=== PATIENT | male | born 1955 | race Caucasian/White ===

== ENCOUNTER 2021-01-22 02:49 | Day surgery (SDC) | payer MEDICARE, SELFPAY ==
[2021-01-07 15:55] VITALS: BMI 26.9
--- NOTE | 2021-01-22 08:04 | P.PNAN_ITS ---
Anes - Initial Pre Proc Eval Procedure: Operation Date: 01/22/21 10:30 Proposed Procedures p Esophagogastroduodenoscopy - Siddharth Rivera MD Date/Time: 01/22/21 08:04 Surgeon: Siddharth Rivera MD Pre Op Diagnosis: esophageal obstruction Patient Data Age: 66 Gender: M Height: 1.78 m Weight: 85 kg Allergies Allergy/AdvReac Type Severity Reaction Status Date / Time No Known Allergies Allergy Verified 01/22/21 09:23 Home Medications Medication Instructions Recorded Confirmed Type testosterone 1 % (50 mg/5 gram) 2 packet TRANSDERM QAM #300 gm 02/23/19 01/22/21 Rx transdermal gel packet albuterol sulfate 90 mcg/actuation 2 puff INHALATION Q4H PRN #8.5 g 05/16/20 01/22/21 Rx aerosol inhaler multivitamin 1 tablet PO DAILY 05/16/20 01/22/21 History fluticasone propionate 50 2 spray INTRANASAL DAILY #16 g 10/25/20 01/22/21 Rx mcg/actuation nasal spray,suspension testosterone 20.25 mg/1.25 gram 4 pump TOPICAL DAILY #300 gm 01/21/21 01/22/21 Rx (1.62 %) transdermal gel pump Patient hx anesthesia problems: none Family hx anesthesia problems: none Results Review: All pre-operative results and documents have been reviewed as part of the pre-operative evaluation. [facility] Past Medical History Medical History (Updated 01/22/21 @ 10:16 by Siddharth Rivera MD) Alcohol use disorder, mild, in controlled environment Allergic rhinitis Asthma Eczema Hypogonadism in male Overweight (BMI 25.0-29.9) Surgical History Surgical History (Updated 05/16/20 @ 10:56 by Mary Anne Carmona CMA) History of rotator cuff surgery 2016 Social History Social History Smoking status: Never smoker Alcohol intake: current Drinks per week: 12 Living arrangements: alone Anes - Eval Final PreProcedure Day of Procedure 01/22/21 08:04 Patient weight: overweight Heart: regular rate and rhythm Lungs: clear to auscultation and normal air movement Airway: Mallampati scale class II Neurological: alert and oriented Last oral intake: >/= 8 hours ASA classification: II Emergent: no Anesthetic plan: proceed Anesthesia type and monitoring: general GIVS and standard monitoring Results Review: All pre-operative results and documents have been reviewed as part of the pre-operative evaluation. Informed Consent: The patient's anesthetic plan and its attendant risks and benefits were discussed with the patient/family/POA. Questions were solicited and answers provided to the satisfaction of the patient/family/POA.
[2021-01-22 09:24] VITALS: BP 136/75; PULSE 64; RESP 16; TEMP 36.2; O2SAT 97; BMI 27.6
[2021-01-22] MEDS: LACTATED RINGERS 1,000 ML 150 ML IV CONT (09:39)
--- NOTE | 2021-01-22 10:14 | WPDGICN ---
Assessment and Plan Assessment and plan (1) Dysphagia: Code(s): R13.10 - Dysphagia, unspecified Status: Acute Assessment and Plan: Patient has difficulty eating more solid foods including meats food appears to catch the mid substernal portion the chest. Plan is for EGD to assess for esophageal narrowing possibly for dilatation. Further recommendations will be given after endoscopy. GI Consult Note Consult date/time: 01/22/21 10:14 HPI: Rickey Powers is a 66 year old male presents with complaints of dysphagia. Over last 1 year patient is noted food catching in the low mid substernal portion of the chest. This typically occurs after eating steak meal. He denies any heartburn. He has had no bleeding. He denies any weight loss. He presents today for evaluation of difficulty swallowing. Family history is noncontributory. Review of Systems Review of Systems: All systems reviewed & are unremarkable except as noted in HPI and below PMFSH Past Medical History Medical History (Updated 01/22/21 @ 10:16 by Siddharth iRvera MD) Alcohol use disorder, mild, in controlled environment Allergic rhinitis Asthma Eczema Hypogonadism in male Overweight (BMI 25.0-29.9) Surgical History Surgical History (Updated 05/16/20 @ 10:56 by Mary Anne Carmona CMA) History of rotator cuff surgery 2015 Social History Social History Smoking status: Never smoker Alcohol intake: current Drinks per week: 12 Living arrangements: alone Meds Home Medications and Allergies Home Medications Medication Instructions Recorded Confirmed Type testosterone 1 % (50 mg/5 gram) 2 packet TRANSDERM QAM #300 gm 02/23/19 01/22/21 Rx transdermal gel packet albuterol sulfate 90 mcg/actuation 2 puff INHALATION Q4H PRN #8.5 g 05/16/20 01/22/21 Rx aerosol inhaler multivitamin 1 tablet PO DAILY 05/16/20 01/22/21 History fluticasone propionate 50 2 spray INTRANASAL DAILY #16 g 10/25/20 01/22/21 Rx mcg/actuation nasal spray,suspension testosterone 20.25 mg/1.25 gram 4 pump TOPICAL DAILY #300 gm 01/21/21 01/22/21 Rx (1.62 %) transdermal gel pump Allergies Allergy/AdvReac Type Severity Reaction Status Date / Time No Known Allergies Allergy Verified 01/22/21 09:23 Vital Signs Vital Signs - 24 hr 01/22/21 09:24 Temperature 97.2 F L Pulse Rate 64 Respiratory Rate 16 Blood Pressure 136/75 Pulse Oximetry 97 Exam Narrative: Physical exam reveals patient be alert. Vital signs stable. HEENT exam is unremarkable. Patient is anicteric. Lungs are clear to auscultation and percussion. Heart is without murmur or extra sounds. Abdominal exam bowel sounds are present soft nontender with no organomegaly. Digital external rectal exam is normal.
[2021-01-22 10:33] VITALS: BP 116/76; PULSE 69; RESP 18; O2SAT 98
[2021-01-22 10:43] VITALS: BP 103/71; PULSE 68; RESP 19; O2SAT 97
[2021-01-22 10:53] VITALS: BP 126/84; PULSE 62; RESP 20; O2SAT 98
== END 2021-01-22 11:00 | disposition home or self-care (01) ==
PROVIDERS: PCP Family Medicine; Visit Provider Internal Medicine Gastroenterology
PROC: 0DJ08ZZ Inspection of Upper Intestinal Tract, Via Natural or Artificial Opening Endoscopic (ICD-10-PCS; CPT 43235; principal; 2021-01-22 10:30)
DX: K22.2 Esophageal obstruction (principal); K21.00 Gastro-esophageal reflux disease with esophagitis, without bleeding; J45.909 Unspecified asthma, uncomplicated; E29.1 Testicular hypofunction; Z79.51 Long term (current) use of inhaled steroids
CPT/HCPCS: 43239; 43450; 88305; J2704; J7120

== ENCOUNTER 2022-06-26 08:22 | Outpatient (CLI) | payer MEDICARE, OTHER, SELFPAY ==
--- NOTE | 2022-07-10 14:19 | WPDSLEEPSTUD ---
Sleep Study Date of Study: 06/26/22 Ordering Provider: Tino Arriaga MD Interpreting Physician: Mely Foy MD Sleep Study Type: Split Polysomnogram Height: 1.78 m Weight: 90.718 kg Body Mass Index: 28.7 Neck Circumference (inches): 18 [place]: 6 Reason for Sleep Study Loud snoring Sleep History Rickey Powers is a 67-year-old man who had a stroke June 10, 2022 with admission to an outside hospital. He had changes of an acute infarct and elevated blood pressure, placed on lisinopril. He has chronic small vessel ischemic changes on brain imaging. He does not awaken from sleep feeling short of breath. He rarely awakens at night with heartburn, belching or coughing. He frequently snores, occasionally loudly enough that others complain about it he occasionally has trouble sleeping with a cold. He rarely wakes up gasping for breath at night. He occasionally has breathing problems at night observed by others. He does not sweat excessively at night or notice his heart pounding or beating excessively at night. He rarely falls asleep during the day, never involuntarily and never while driving. He does not have loss of muscle tone with strong emotion. He rarely has daytime difficulties due to excessive sleepiness. He does not feel paralyzed on waking or falling asleep. He does not have vivid dreamlike scenes on waking or falling asleep. He does not feel afraid to go to sleep. Does not have nightmares. He occasionally remembers his dreams. He occasionally has racing thoughts. He does not feel sad or depressed. He rarely has anxiety. He does not have muscular tension. He rarely notices parts of his body jerking. He rarely kicks at night. He does not have crawling or aching feelings in his legs. He does not have leg pain at night. Does not have morning jaw pain. He occasionally grinds his teeth during sleep. He rarely is bothered by pain during the day. Rarely is awakened by pain at night. He rarely wakes up feeling stiff in the morning. He rarely wakes up with sore achy muscles or pain in the neck and spine. He has fatigue. He reports a 10 lb weight gain in the last year. Normal bedtime is 9:00 p.m. falling asleep within 15 minutes. He wakes once during the night to go to the bathroom. He is able to return to sleep within 10 minutes. He wakes for his day at 8:00 a.m.. He estimates getting 9 hours of sleep at night. His weekend schedule is the same. He takes naps in the afternoon or evening. A short nap lasting 10 or 15 minutes may be refreshing. He feels better in the morning compared to other times a day. Habits: His history shows that he smokes a few cigars, not cigarettes. Caffeine 2 servings a day. Alcohol 2 bottles a day. No recreational substances. [facility] Past Medical History Medical History Alcohol use disorder, mild, in controlled environment Allergic rhinitis Asthma CVA (cerebral vascular accident) Eczema Hypogonadism in male Overweight (BMI 25.0-29.9) Surgical History Surgical History History of rotator cuff surgery 2015 Social History Social History Smoking status: Never smoker Alcohol intake: current Drinks per week: 12 Living arrangements: alone Medications Home Medications Medication Instructions Recorded Confirmed Type testosterone 1 % (50 mg/5 gram) 2 packet transdermal QAM #300 grams 02/23/19 06/18/22 Rx transdermal gel packet (AndroGel) multivitamin (Daily Multi-Vitamin 1 tablet PO DAILY 05/16/20 06/18/22 History tablet) fluticasone propionate 50 2 spray intranasal DAILY #16 grams 04/19/21 06/18/22 Rx mcg/actuation nasal spray,suspension (Flonase Allergy Relief) testosterone 4 pump topical DAILY #300 grams 02/11/22 06/18/22 Rx prednisone 10 mg tablet See Rx Instructions P
[2022-07-10 14:59] VITALS: BMI 28.7
== END 2022-06-27 06:57 | disposition home or self-care (01) ==
LOC: ANHCSM 08:23
PROVIDERS: PCP Family Medicine; Visit Provider Family Medicine
DX: G47.9 Sleep disorder, unspecified (principal); I63.9 Cerebral infarction, unspecified; G47.33 Obstructive sleep apnea (adult) (pediatric)
CPT/HCPCS: 95811

== ENCOUNTER 2022-07-16 16:22 | Inpatient (IN) | payer MEDICARE, SELFPAY ==
[2022-07-16] VITALS (9 sets, daily range): BP systolic 114–134; BP diastolic 63–103; PULSE 66–88; RESP 13–18; TEMP 36.3–36.8; O2SAT 92–97; BMI 28.1
--- NOTE | ~2022-07-16 | CT_ITS ---
CT head without contrast Indication: Status post fall Technique: Serial scans were obtained through the brain without the administration of contrast. Dose reduction technique was used on this scan by utilizing automated exposure control and iterative recon struction technique. The dose-length product (DLP) was 605.33 mGy-cm. Findings: There is no evidence of intracranial hemorrhage, mass lesion, or acute infarct. The ventri cles and subarachnoid spaces are unremarkable. Mild low attenuation regions are seen within the periv entricular white matter bilaterally, likely representing changes from chronic microvascular ischemic disease. There is no evidence of edema, mass effect or midline shift. The visualized paranasal sinu ses and mastoid air cells are clear. Impression: No intracranial hemorrhage, mass, or acute infarct. Mild chronic white matter changes, as above. Reviewed, dictated and finalized at location . Impression: No intracranial hemorrhage, mass, or acute infarct. Mild chronic white matter changes, as above.
--- NOTE | ~2022-07-16 | XR_ITS ---
EXAMINATION: XR chest 1V portable Exam Date/Time: 07/16/2022 18:30 CDT HISTORY: STEMI, POST PROCEDURE Comparison: 11/17/2014. RESULT: Lines, tubes, and devices: None. Lungs and pleura: Clear. Cardiomediastinal silhouette: Stable. Other: No acute osseous or upper abdominal finding. IMPRESSION: No acute cardiopulmonary process. Reviewed, dictated and finalized at location K.
--- NOTE | 2022-07-16 16:27 | ECG_ITS ---
Measurements Intervals [place] Rate: 66 P: -81 DC: 115 QRS: 36 QRSD: 92 T: 88 QT: 395 QTc: 415 Interpretive Statements ECTOPIC ATRIAL RHYTHM INFERIOR ST ELEVATION MYOCARIDAL INFARCT- ACUTE POSTERIOR INFARCT, ACUTE ABNORMAL ECG NO PREVIOUS ECG AVAILABLE FOR COMPARISON Electronically Signed On 07-16-2022 18:12:16 CDT by Raudel Thomas D.O.
--- NOTE | 2022-07-16 16:30 | PC.NURSE ---
agriculture laboratory technician at bedside.
--- NOTE | 2022-07-16 16:33 | PC.NURSE ---
3 baby aspirin given.
--- NOTE | 2022-07-16 16:35 | ED.GENADULT ---
HPI - General Adult General Chief complaint: Syncope Stated complaint: syncopal episode x 2 Time Seen by Provider: 07/16/22 16:31 History of Present Illness HPI narrative: Patient is 67-year-old gentleman who presents the emergency department with chief complaint of syncopal episode. [facility] and passed out on the floor in the bathroom. The patient reports he had another episode immediately after the first 1 and was brought to the emergency department. The patient denies chest pain reports that he feels a little short of breath and reports that he had some diaphoresis. The patient reports approximately 6 weeks ago he had a TIA and is currently on a baby aspirin daily Related Data Home Medications Medication Instructions Recorded Confirmed multivitamin (Daily Multi-Vitamin 1 tablet PO DAILY 05/16/20 06/18/22 tablet) aspirin 81 mg tablet 81 mg PO DAILY 06/18/22 06/18/22 atorvastatin 40 mg tablet 40 mg PO DAILY 06/18/22 06/18/22 lisinopril 2.5 mg tablet 2.5 mg PO DAILY 06/18/22 06/18/22 Allergies Allergy/AdvReac Type Severity Reaction Status Date / Time No Known Allergies Allergy Verified 07/16/22 16:31 Review of Systems Review of Systems: A 10 system review of systems was completed on the patient and is negative except for what is stated in the HPI. Nursing and ancillary documentation was reviewed. [facility] Past Medical History Medical History Alcohol use disorder, mild, in controlled environment Allergic rhinitis Asthma CVA (cerebral vascular accident) Eczema Hypogonadism in male Overweight (BMI 25.0-29.9) Surgical History Surgical History History of rotator cuff surgery 2016 Social History Social History Smoking status: Never smoker Alcohol intake: current Drinks per week: 12 Living arrangements: alone Exam Narrative: GENERAL: Well-appearing, well-nourished, and in no acute distress. HEAD: Normocephalic, atraumatic. EYES: PERRLA and EOMI. ENT: Nares clear, no rhinorrhea or epistaxis. Mucous membranes moist. NECK: Supple. CHEST: Clear to auscultation. No respiratory distress. HEART: Regular rate and rhythm. No murmur heard. Normal peripheral pulses. ABDOMEN: Soft, nontender, nondistended, normal active bowel sounds. EXTREMITIES: Normal range of motion. No edema. SKIN: Warm, diaphoretic, no rash. NEURO: No focal deficits. Alert and oriented x3. PSYCH: Normal mood and affect. Course Vital Signs Vital signs: Vital Signs Pulse Rate 66 07/16/22 16:25 Respiratory Rate 18 07/16/22 16:25 Blood Pressure 121/77 07/16/22 16:25 Pulse Oximetry 96 07/16/22 16:25 Oxygen Delivery Room Air 07/16/22 16:25 Pulse Rate 66 07/16/22 16:25 Respiratory Rate 18 07/16/22 16:25 Blood Pressure 121/77 07/16/22 16:25 Pulse Oximetry 96 07/16/22 16:25 Oxygen Delivery Room Air 07/16/22 16:25 Medical Decision Making MDM Narrative Medical decision making narrative: Differential diagnosis includes dysrhythmia, STEMI, non-STEMI, electrolyte abnormality. Initial EKG showed inferior ST elevations with reciprocal changes. This is concerning for acute ST elevation PA. Given the initial EKG findings cardiac activation was initiated the patient was seen by cardiology in the emergency department will be taken immediately to the Product [facility] for cardiac catheterization. Vital Signs Vital Signs: Vital Signs Pulse Rate 66 07/16/22 16:25 Respiratory Rate 18 07/16/22 16:25 Blood Pressure 121/77 07/16/22 16:25 Pulse Oximetry 96 07/16/22 16:25 Oxygen Delivery Room Air 07/16/22 16:25 Pulse Rate 66 07/16/22 16:25 Respiratory Rate 18 07/16/22 16:25 Blood Pressure 121/77 07/16/22 16:25 Pulse Oximetry 96 05/
--- NOTE | 2022-07-16 16:35 | PC.NURSE ---
Brilinta 180 mg given.
--- NOTE | 2022-07-16 16:36 | PC.NURSE ---
To superintendent geophysical laboratory via stretcher.
[2022-07-16 16:43] LABS: Glucose Point of Care 102 mg/dl (65-105)
[2022-07-16 16:49] LABS: Basophils Absolute Auto 0.1 K/mm3 (0.0-0.1); Basophils Percent Auto 0.6 % (0.2-1.2); Eosinophils Absolute Auto 0.7 K/mm3 (0-0.3); Eosinophils Percent Auto 5.9 % (0-4.4); Hematocrit 45.1 % (42.0-52.0); Hemoglobin 15.2 g/dL (14.0-18.0); Immature Granulocyte Absolute 0.05 K/mm3 (0.00-0.031); Immature Granulocyte Percent A 0.4 % (0-0.5); Lymphocytes Percent Auto 28.4 % (18.3-44.2); Mean Corpuscular HGB Conc 33.7 g/dl (32-36); Mean Corpuscular Hemoglobin 30.3 pg (26-34); Mean Platelet Volume 9.1 fl (7.4-10.4); Monocytes Absolute Auto 1.6 K/mm3 (0.1-0.6); Monocytes Percent Auto 13.3 % (2.6-8.5); Neutrophils Absolute Auto 6.1 K/mm3 (1.3-6.7); Neutrophils Percent Auto 51.4 % (45.5-73.1); Platelet Count Result 352 k/mm3 (150-375); Red Blood Count 5.01 M/mm3 (4.6-6.20); Red Cell Distribution Width 13.2 % (11.5-14.5)
[2022-07-16 16:59] LABS: Partial Thromboplastin Time 24.1 SECONDS (22.3-36.8); Prothrombin Time 13.3 Seconds (11.1-14.7)
[2022-07-16 17:01] LABS: Alanine Aminotransferase 37 U/L (6-50); Albumin Level 4.8 g/dL (3.5-5.1); Alkaline Phosphatase 91 U/L (38-126); Anion Gap 11 mmol/L (8-16); Aspartate Amino Transferase 32 U/L (17-59); Bilirubin,Total 0.4 mg/dL (0.2-1.3); Blood Urea Nitrogen 15 mg/dL (9-20); Calcium 9.5 mg/dL (8.4-10.2); Carbon Dioxide 26 mmol/L (22-30); Chloride 105 mmol/L (98-107); Cholesterol 127 mg/dL (0-200); Estimated CRCL calculation 83 ml/min; Estimated Glomerular Filt Rate > 60; Glucose 105 mg/dL (65-110); HDL Direct 44 mg/dL; Potassium 3.9 mmol/L (3.4-5.0); Sodium 142 mmol/L (137-145); Triglycerides 190 mg/dL (<150)
[2022-07-16 17:12] LABS: LDL Cholesterol Direct 56 mg/dL; Troponin I < 0.012 ng/mL (0.000-0.034)
--- NOTE | 2022-07-16 17:55 | PM.IMHP ---
H&P: HPI History of Present Illness Date/Time: 07/16/22 17:55 Chief Complaint: Syncopal episode Narrative: Patient is a 67-year-old male with history of CVA in 05/2022 who presented with syncope. Patient was at [facility] and went to the bathroom and passed out in the bathroom. Patient had a second episode of syncope soon after the first episode. No chest pain. He had picked up an event monitor from our clinic earlier today. Event monitor was ordered to rule out atrial fibrillation given his stroke. On arrival to the ED, his EKG showed inferior STEMI. Review of Systems Review of Systems: All systems reviewed & are unremarkable except as noted in HPI and below (HPI) COUNTS INCLUDE 234 BEDS AT THE [facility] Past Medical History Medical History Alcohol use disorder, mild, in controlled environment Allergic rhinitis Asthma CVA (cerebral vascular accident) Eczema Hypogonadism in male Overweight (BMI 25.0-29.9) Surgical History Surgical History History of rotator cuff surgery 2015 Social History Social History Smoking status: Never smoker Alcohol intake: current Drinks per week: 12 Living arrangements: alone Meds Home Medications and Allergies Home Medications Medication Instructions Recorded Confirmed Type testosterone 1 % (50 mg/5 gram) 2 packet transdermal QAM #300 grams 02/23/19 06/18/22 Rx transdermal gel packet (AndroGel) multivitamin (Daily Multi-Vitamin 1 tablet PO DAILY 05/16/20 06/18/22 History tablet) fluticasone propionate 50 2 spray intranasal DAILY #16 grams 04/19/21 06/18/22 Rx mcg/actuation nasal spray,suspension (Flonase Allergy Relief) testosterone 4 pump topical DAILY #300 grams 02/11/22 06/18/22 Rx prednisone 10 mg tablet See Rx Instructions PO DAILY #42 04/01/22 06/18/22 Rx tabs albuterol sulfate 90 mcg/actuation 2 puff inhalation Q4H PRN 06/18/22 06/18/22 Rx aerosol inhaler (ProAir HFA) bronchospasm #8.5 grams aspirin 81 mg tablet 81 mg PO DAILY 06/18/22 06/18/22 History atorvastatin 40 mg tablet 40 mg PO DAILY 06/18/22 06/18/22 History lisinopril 10 mg tablet 10 mg PO DAILY #90 tabs 06/18/22 06/18/22 Rx lisinopril 2.5 mg tablet 2.5 mg PO DAILY 06/18/22 06/18/22 History metformin 500 mg tablet,extended 500 mg PO DAILY #90 tabs 07/09/22 Rx release 24 hr CPAP #1 ea 07/10/22 Rx Allergies Allergy/AdvReac Type Severity Reaction Status Date / Time No Known Allergies Allergy Verified 07/16/22 16:31 Vital Signs Vital Signs - 24 hr 07/16/22 16:25 07/16/22 16:28 Pulse Rate 66 88 Respiratory Rate 18 Blood Pressure 121/77 Pulse Oximetry 96 Oxygen Delivery Room Air Exam Const: General: in distress mild HENMT: Mouth: Yes moist mucous membranes Eyes: General: appearance normal, both eyes and all related structures Sclera: sclerae normal Neck: Neck: supple Resp: Effort & Inspection: normal respiratory effort Auscultation: clear to auscultation bilaterally Cardio: Rate: regular rate Rhythm: regular rhythm Heart sounds: no murmurs GI: GI Palp: Yes Soft to palpation and No Tenderness to palpation present (GI) Skin: General skin exam: normal color Neuro: Speech: normal speech Psych: Mental Status: mental status grossly normal Affect: normal affect H&P: Results Labs Labs: Short CBC 07/16/22 Range/Units 16:36 WBC 12.0 H (4.5-10.0) K/mm3 Hgb 15.2 (14.0-18.0) g/dL Hct 45.1 (42.0-52.0) % Plt Count 352 (150-375) k/mm3 [facility] 07/16/22 16:36 Sodium 142 Potassium 3.9 Chloride 105 Carbon Dioxide 26 BUN 15 Creatinine 0.80 Glucose 105 Calcium 9.5 Cardiac Enzymes 07/16/22 Range/Units 16:36 Troponin I < 0.012 (0.000-0.034) ng/mL Liver Function 07/16/22 Range/Units 16:36 Total Bilirubin 0.4 (0.2-1.3) mg/dL AST 32 (17-59) U/L ALT 37 (6-50)
--- NOTE | 2022-07-16 18:02 | WPDMODSED ---
Moderate Sedation Note-Pt Data Patient Data Diagnosis: Inferior STEMI Present Complaint: Syncope Procedure to be performed/Plan: Primary PCI Allergies Allergy/AdvReac Type Severity Reaction Status Date / Time No Known Allergies Allergy Verified 07/16/22 16:31 Home Medications Medication Instructions Recorded Confirmed Type testosterone 1 % (50 mg/5 gram) 2 packet transdermal QAM #300 grams 02/23/19 06/18/22 Rx transdermal gel packet (AndroGel) multivitamin (Daily Multi-Vitamin 1 tablet PO DAILY 05/16/20 06/18/22 History tablet) fluticasone propionate 50 2 spray intranasal DAILY #16 grams 04/19/21 06/18/22 Rx mcg/actuation nasal spray,suspension (Flonase Allergy Relief) testosterone 4 pump topical DAILY #300 grams 02/11/22 06/18/22 Rx prednisone 10 mg tablet See Rx Instructions PO DAILY #42 04/01/22 06/18/22 Rx tabs albuterol sulfate 90 mcg/actuation 2 puff inhalation Q4H PRN 06/18/22 06/18/22 Rx aerosol inhaler (ProAir HFA) bronchospasm #8.5 grams aspirin 81 mg tablet 81 mg PO DAILY 06/18/22 06/18/22 History atorvastatin 40 mg tablet 40 mg PO DAILY 06/18/22 06/18/22 History lisinopril 10 mg tablet 10 mg PO DAILY #90 tabs 06/18/22 06/18/22 Rx lisinopril 2.5 mg tablet 2.5 mg PO DAILY 06/18/22 06/18/22 History metformin 500 mg tablet,extended 500 mg PO DAILY #90 tabs 07/09/22 Rx release 24 hr CPAP #1 ea 07/10/22 Rx Current Medications: Active Medications Aspirin (Aspirin 81 Mg Enteric Tablet) 81 mg PO QAM [facility] Atorvastatin Calcium (Atorvastatin 40 Mg Tablet) 80 mg PO DAILY CARLA Sodium Chloride (Normal Saline Iv) 1,000 mls @ 125 mls/hr IV CONT .Q8H ONE Stop: 07/17/22 01:51 Perflutren Lipid Microsphere (Perflutren Lipid Microspheres 1.5 Ml Vial Diluted To 10 Ml Total Volume) 0 ml IV PUSH ONCE PRN; Protocol PRN Reason: adequate visualization Stop: 07/18/22 17:54 Ticagrelor (Ticagrelor 90 Mg Tablet) 90 mg PO Q12HR CARLA Sedation/Anesthesia: No previous sedation/anesthesia problems (including family history). [facility] Past Medical History Medical History Alcohol use disorder, mild, in controlled environment Allergic rhinitis Asthma CVA (cerebral vascular accident) Eczema Hypogonadism in male Overweight (BMI 25.0-29.9) Surgical History Surgical History History of rotator cuff surgery 2015 Social History Social History Smoking status: Never smoker Alcohol intake: current Drinks per week: 12 Living arrangements: alone Mod Sed Physical Exam Physical Exam Pre Procedural Exam: Normal: Appearance, Lungs, Heart Rate, Heart Rhythm, Neuro Exam, Abdomen, Extremities and Skin Hours since solid foods: 6 Hours since liquid intake: 6 Mallampati Classification: class III Internal Medicine - PN: Obj Da Vital Signs Vital Signs: Vital Signs - 24 hr 07/16/22 16:25 07/16/22 16:28 Pulse Rate 66 88 Respiratory Rate 18 Blood Pressure 121/77 Pulse Oximetry 96 Oxygen Delivery Room Air Meds/Results Medications: Active Medications Generic Name Dose Route Start Last Admin Trade Name Freq PRN Reason Stop Dose Admin Aspirin 81 mg 07/17/22 09:00 Aspirin 81 Mg Enteric Tablet PO QAM [facility] Atorvastatin Calcium 80 mg 07/17/22 09:00 Atorvastatin 40 Mg Tablet PO DAILY [facility] Sodium Chloride 1,000 mls @ 125 mls/hr 07/16/22 17:52 Normal Saline Iv IV CONT 07/17/22 01:51 .Q8H ONE Perflutren Lipid Microsphere 0 ml 07/16/22 17:54 Perflutren Lipid Microspheres 1.5 Ml Vial Diluted To 10 Ml Total Volume IV PUSH 07/18/22 17:54 ONCE PRN adequate visualization Protocol Ticagrelor 90 mg 07/16/22 21:00 Ticagrelor 90 Mg Tablet PO Q12HR [facility] Labs 07/16/22 16:36 07/16/22 16:36 Labs: Laboratory Results - last 24 hr 07/16/22 053
--- NOTE | 2022-07-16 18:03 | WPDCARDPROC ---
Cardiac Cath Procedure Note Date of procedure:: 07/16/22 Performing physician:: CATHETERIZATION LABORATORY REPORT Procedure Date: 07/16/2022 Splicing Technician: Duy Ribeiro M.D., [facility]? Referring Physician: Dr. Gutiérrez ([facility]) ? Anesthesia: Versed and Fentanyl were ordered and given in my presence at 16:51, procedure ended at 17:47. Supervision of nurse monitored moderate sedation with Versed and Fentanyl was provided for 56 minutes. Total of Versed 1mg and Fentanyl 25mcg were administered by the Kiln Remover RN Katie Ling. Pre-op Diagnosis: Inferior STEMI Post-op Diagnosis: 1. Acute 100% occlusion of the mid RCA s/p successful primary PCI with VALERIA x 1. 2. The mid LAD has a heavily calcific 80% stenosis, however, LAD is small caliber distal to the lesion. Will medically manage for now. Procedure(s): 1. Moderate sedation 2. Ultrasound-guided access of the right common femoral artery 3. Coronary angiography 4. IVUS of the RCA 5. PCI of the mid RCA s/p VALERIA x 1 with pre and post dilatation 6. Angioseal closure of the right common femoral artery Access Site: Right common femoral artery Brief History and Clinical Indications: Patient is a 67-year-old male with a history of hypertension and CVA who is referred for emergent cardiac cath for inferior STEMI. All risks, benefits and alternatives to left heart catheterization with or without percutaneous coronary intervention was discussed at length with the patient. Risk of complications including but not limited to bleeding, infection, arrhythmia, stroke, worsening kidney function, blood loss, groin hematoma, limb loss, emergency coronary artery bypass grafting, and even were discussed with the patient and all questions were answered. The patient understood and wished to proceed. Time out called, patient name, date of , medical record number, allergies, procedure performed, identify Splicing Technician, patient and staff member concurred with accurate data, procedure carried on. Findings: LEFT HEART CATHETERIZATION FINDINGS: 1. Left main: Large caliber vessel. The left main coronary artery is widely patent without any significant obstructive disease. Bifurcates into the LAD and LCX. 2. Left anterior descending: The proximal-mid LAD is heavily calcified. The proximal LAD is large caliber and then the LAD tapers down to small caliber. The mid LAD at the level of the bifurcation of the first diagonal vessel has a heavily calcified 80% stenosis. The LAD at this point is a small caliber vessel. Remainder of the LAD has mild diffuse disease. The first diagonal branch is a small caliber vessel with diffuse disease. 3. Left circumflex: The proximal LCX has mild diffuse disease. The AV groove circumflex is very small caliber and with diffuse disease. The left circumflex bifurcates into two OM branches. OM-1 bifurcates into two branches. OM-1 and its branches are of very small caliber and with diffuse disease. OM-2 is very small caliber and with diffuse disease. 4. Right coronary artery: Large caliber vessel. The RCA is the dominant vessel. The RCA has heavy diffuse calcifications. The RCA has an acute 100% occlusion in its mid portion. Description of Procedure and PCI: Informed consent signed and placed in the chart. Patient transferred to cathode maker room. Prepped and draped in usual sterile fashion. 2% lidocaine in right groin area. Micropuncture needle used to access right common femoral artery with Seldinger technique under fluoroscopic and ultrasound guidance. J wire advanced, micropuncture cannula placed. Right iliofemoral angiogram performed, access confirmed and micropuncture cannula exchanged for 6-FR sheath. 5F FL 4 diagnostic catheter engaged Left Main Coronary Artery. Angiomax used for anticoagulation. 6F JR 4 guide catheter was used to intubate the RCA. 0.014 [place] coronary wire was passed in to the distal RCA. The lesion was pre-dilated with a 2.5mm x 15mm b
--- NOTE | 2022-07-16 18:38 | PC.NURSE ---
[email or web address] Admission Note: The patient,Rickey Powers,67 y/o, was given written information regarding hospital policies, unit procedures and contact persons. Patient's smoking status: Never smoked cigars but quite 6 weeks ago
[2022-07-16] MEDS: SODIUM CHLORIDE 0.9% IV 1,000 ML 125 ML IV CONT (19:02)
[2022-07-16] MEDS: TICAGRELOR 90 MG TABLET PO (21:07)
[2022-07-17] VITALS (8 sets, daily range): BP systolic 103–127; BP diastolic 45–89; PULSE 62–79; RESP 12–24; TEMP 36.9–37.1; O2SAT 95–99
--- NOTE | 2022-07-17 | ECHO_ITS ---
Patient Info Name: Rickey Powers Age: 67 years : 1955 Gender: Male Ht: 70 in Wt: 195 lbs BSA: 2.11 m2 HR: 66 bpm BP: 115 / 55 mmHg Heart Rhythm: Sinus Rhythm Technical Quality: Fair Exam Date: 07/17/2022 10:15 AM Exam Location: [facility] Pulmonary Exam Room: ICU06 Patient Status: Inpatient Admit Date: 07/16/2022 Staff Ordering Physician: Duy Ribeiro MD ([facility]) Elevator Service Technician: Rhea Mckeon RDCS Attending Provider: Duy Ribeiro MD ([facility]) Referring Physician: Quintin SMITH; Exam Type: CA echo dop color flow w con Study Info Indications - S/P STEMI S/P CATH Complete two-dimensional, color flow and Doppler transthoracic echocardiogram is performed with contrast to opacify the left ventricle and to improve the deliniation of the left ventricle endocardial borders. Contrast/Agitated Saline Contrast/Ag. Saline: Definity Amount: 2.00 ml Administered By: Rhea Mckeon [facility] Existing IV Access: Yes IV Access Condition: patent with no signs of infiltration Summary 1. Left ventricular chamber dimension is normal. 2. Left ventricular systolic function is normal, estimated at 65-70%. 3. The left ventricular diastolic function is grade I diastolic dysfunction. 4. Right ventricular systolic function is normal. 5. There is mild tricuspid valve regurgitation. Left Ventricle Left ventricular chamber dimension is normal. Left ventricular systolic function is normal, estimated at 65-70%. There is no increased left ventricular wall thickness. The left ventricular diastolic function is grade I diastolic dysfunction. Right Ventricle Right ventricular chamber dimension is normal. Right ventricular systolic function is normal. Left Atria Left atrial chamber dimension is normal. Right Atria Right atrial chamber dimension is normal. Atrial Septum Intact interatrial septum visualized by color flow imaging. Aortic Valve The aortic valve is trileaflet. There is no aortic valve stenosis. There is no aortic valve regurgitation. There is moderate aortic valve calcification. Pulmonic Valve The pulmonic valve is not well visualized. Mitral Valve The mitral valve annulus is mildly calcified. There is no mitral valve regurgitation. Tricuspid Valve There is mild tricuspid valve regurgitation. Pericardium/Pleural The pericardium appears epicardial fat pad. There is no pericardial effusion. Inferior Vena Cava Normal inferior vena cava with >50% collapse upon inspiration consistent with normal right atrial pressure, 3 mmHg. Aorta The aortic root size at the sinus of Valsalva is normal. Left Ventricular Outflow Tract Name Value Normal LVOT 2D LVOT Diameter 2.07 cm LVOT Doppler LVOT Peak Gradient 6 mmHg LVOT Mean Gradient 3 mmHg LVOT VTI 21.68 cm LVOT VTI/AV VTI Ratio 0.80 LVOT Stroke Volume 72.72 ml LVOT CO 16.50 l/min LVOT CI 7.83 L/min/m2 Pulmonic Valve
[2022-07-17 04:28] LABS: Basophils Percent Auto 0.4 % (0.2-1.2); Eosinophils Absolute Auto 0.3 K/mm3 (0-0.3); Hematocrit 41.8 % (42.0-52.0); Hemoglobin 13.9 g/dL (14.0-18.0); Immature Granulocyte Absolute 0.03 K/mm3 (0.00-0.031); Immature Granulocyte Percent A 0.3 % (0-0.5); Lymphocytes Absolute Auto 1.74 K/mm3 (0.9-3.2); Lymphocytes Percent Auto 18.8 % (18.3-44.2); Mean Corpuscular HGB Conc 33.3 g/dl (32-36); Mean Corpuscular Hemoglobin 30.2 pg (26-34); Mean Corpuscular Volume 90.7 fl (80-100); Mean Platelet Volume 8.9 fl (7.4-10.4); Monocytes Absolute Auto 1.1 K/mm3 (0.1-0.6); Monocytes Percent Auto 12.2 % (2.6-8.5); Neutrophils Absolute Auto 6.1 K/mm3 (1.3-6.7); Neutrophils Percent Auto 65.3 % (45.5-73.1); Platelet Count Result 240 k/mm3 (150-375); Red Blood Count 4.61 M/mm3 (4.6-6.20); Red Cell Distribution Width 13.2 % (11.5-14.5); White Blood Count 9.3 K/mm3 (4.5-10.0)
[2022-07-17 04:42] LABS: Anion Gap 9 mmol/L (8-16); Blood Urea Nitrogen 9 mg/dL (9-20); Calcium 8.8 mg/dL (8.4-10.2); Carbon Dioxide 23 mmol/L (22-30); Chloride 109 mmol/L (98-107); Estimated CRCL calculation 127 ml/min; Estimated Glomerular Filt Rate > 60; Glucose 101 mg/dL (65-110); Potassium 3.9 mmol/L (3.4-5.0); Sodium 141 mmol/L (137-145)
--- NOTE | 2022-07-17 08:48 | WPDCNINT ---
Assessment and Plan Assessment and plan (1) Acute ST elevation myocardial infarction: Qualifiers: Involved coronary artery: unspecified coronary artery Qualified Code(s): I21.3 - ST elevation (STEMI) myocardial infarction of unspecified site Code(s): I21.3 - ST elevation (STEMI) myocardial infarction of unspecified site Status: Acute Assessment and Plan: Patient presents with syncope x2 -EKG in the ER showed inferior ST-elevation IL -status post PTCA/PCI with VALERIA x1 to mid RCA, patient also has a heavily calcified mid LAD with 80% stenosis -continue aspirin, atorvastatin, ticagrelor -cardiology following the patient (2) Elevated blood pressure reading: Code(s): R03.0 - Elevated blood-pressure reading, without diagnosis of hypertension Status: Acute Assessment and Plan: Blood pressure is currently stable (3) CVA (cerebral vascular accident): Code(s): I63.9 - Cerebral infarction, unspecified Status: Acute Assessment and Plan: Patient with history of recent CVA/TIA in May 2022 no residual weakness -patient has an event monitor which was placed 6 on 07/16/2022 -he follows up with Cardiology at [facility] Plan DVT prophylaxis: STEMI status post cardiac catheterization Stress ulcer prophylaxis: Not required Nutrition: Heart healthy diet Code Status: Full code Critical Care Time Spent: 44 minutes Due to a high probability of clinically significant, life threatening deterioration, the patient required my highest level of preparedness to intervene emergently and I personally spent this critical care time directly and personally managing the patient. This critical care time included obtaining a history; examining the patient; pulse oximetry; ordering and review of studies; arranging urgent treatment with development of a management plan; evaluation of patient's response to treatment; frequent reassessment; and discussions with other providers. It was exclusive of separately billable procedures and treating other patients and teaching time. Please see Assessment and Plan section and the rest of the note for further information on patient assessment and treatment This dictation may have been done utilizing a voice recognition system. Attempts have been made to correct errors. However, there may be uncorrected grammatical, spelling, and recognitions errors present. Zigzag Machine Operator Consult Note Consult date: 07/17/22 Reason for consult: STEMI status post VALERIA x1 to mid RCA HPI: Rickey Powers is a 67 year old male ouse, adequate with past medical history of allergic rhinitis, alcohol use, TIA/CVA in May 2022, eczema, hypogonadism, overweight presented the ED with syncope, patient was at [facility] and went to the restroom when he passed out. Patient had a 2nd episode soon after the 1st episode. Patient was brought to the ED where he did not complain of any chest pain, he had picked up an event monitor from the Cardiology Clinic at [facility] on the day of admission. Even monitor was ordered to rule out atrial fibrillation given his TIA/stroke without residual effects. EKG showed inferior ST elevation [place], patient was taken to the cardiac test lab technician where he was found to have 100% occlusion in the mid RCA status postPTCA /PCI with VALERIA x1 to mid RCA. Patient also has 80% stenosis of mid LAD which is heavily calcified. Patient was transferred to the ICU for further management Patient seen and examined this morning in the ICU, is awake, alert, oriented, nonfocal. Patient denies any chest pain, shortness of breath, abdominal pain, nausea vomiting. Patient is hemodynamically stable, afebrile with adequate urine output -no issues overnight Review of Systems Review of Systems: All systems reviewed & are unremarkable except as noted in HPI and below [facility] Past Medical History Medical History Alcohol use disorder,
[2022-07-17] MEDS: TICAGRELOR 90 MG TABLET PO (08:56)
[2022-07-17] MEDS: ATORVASTATIN 40 MG TABLET 80 MG PO (08:56)
[2022-07-17] MEDS: ASPIRIN 81 MG ENTERIC TABLET PO (08:56)
--- NOTE | 2022-07-17 10:15 | PM.PNCARD ---
Progress Note: A&P Assessment and Plan (1) Acute ST elevation myocardial infarction: Qualifiers: Involved coronary artery: unspecified coronary artery Qualified Code(s): I21.3 - ST elevation (STEMI) myocardial infarction of unspecified site Code(s): I21.3 - ST elevation (STEMI) myocardial infarction of unspecified site Status: Acute Assessment and Plan: Cardiac cath showed acute thrombotic occlusion of the RCA, s/p successful PCI with VALERIA x 1. Loaded with ASA 324mg x 1. Continue ASA 81mg once daily indefinitely. Loaded with Brilinta 180mg x 1. Continue with Brilinta for at least 1 year. High-intensity statin. Echo ordered. His event monitor reportedly showed transient complete heart block earlier prior to presentation -- likely due to inferior STEMI. Patient is currently in sinus rhythm. Tele without any arrhythmias. Has LAD lesion - will medically treat for now and make plan for eventual revascularization. If echo without any significant abnormality, will discharge later today. Will arrange close outpatient follow up in our clinic. Subjective Date/time seen: 07/17/22 10:15 Interval history: Reason for visit: STEMI HPI: Patient is a 67-year-old male with history of CVA in 05/2022 who presented with syncope. Patient was at [facility] and went to the bathroom and passed out in the bathroom. Patient had a second episode of syncope soon after the first episode. No chest pain. He had picked up an event monitor from our clinic earlier today. Event monitor was ordered to rule out atrial fibrillation given his stroke. On arrival to the ED, his EKG showed inferior STEMI. Date of service 07/17: No acute events overnight. Feeling well this morning. Tele without any arrhythmias. Review of Systems Review of Systems: All systems reviewed & are unremarkable except as noted in HPI and below (HPI) Exam Const: General: comfortable and no acute distress HENMT: Mouth: Yes moist mucous membranes Eyes: General: appearance normal, both eyes and all related structures Sclera: sclerae normal Neck: Neck: supple Resp: Effort & Inspection: normal respiratory effort Auscultation: clear to auscultation bilaterally Cardio: Rate: regular rate Rhythm: regular rhythm Heart sounds: no murmurs GI: GI Palp: Yes Soft to palpation and No Tenderness to palpation present (GI) Skin: General skin exam: normal color Neuro: Speech: normal speech Psych: Mental Status: mental status grossly normal Affect: normal affect Objective Data Vital Signs Vital Signs: Vital Signs - 24 hr 07/16/22 16:25 07/16/22 16:28 07/16/22 18:44 Temperature Pulse Rate 66 88 84 Respiratory Rate 18 Blood Pressure 121/77 Pulse Oximetry 96 Oxygen Delivery Room Air 07/16/22 18:44 07/16/22 19:31 07/16/22 20:00 Temperature 36.3 C L Pulse Rate 86 78 79 Respiratory Rate 15 Blood Pressure 125/73 Pulse Oximetry 95 97 Oxygen Delivery Room Air 07/16/22 20:00 07/16/22 20:30 07/16/22 19:00 Temperature Pulse Rate 79 83 80 Respiratory Rate 13 Blood Pressure 134/74 114/64 132/103 H Pulse Oximetry 95 Oxygen Delivery 07/16/22 19:30 07/16/22 22:00 07/16/22 22:00 Temperature 36.8 C Pulse Rate 78 81 81 Respiratory Rate 16 Blood Pressure 126/73 127/63 Pulse Oximetry 92 Oxygen Delivery 07/17/22 00:00 07/17/22 00:00 07/17/22 00:00 Temperature 36.9 C Pulse Rate 78 79 71 Respiratory Rate 16 17 Blood Pressure 126/55 L Pulse Oximetry 97 95 Oxygen Delivery Room Air 07/17/22 02:00 07/17/22 02:00 07/17/22 03:13 Temperature Pulse Rate 69 71 68 Respiratory Rate 14 14 Blood Pressure 127/67 Pulse Oximetry 97 96 Oxygen Delivery Room Air 07/17/22 04:00 07/17/22 04:00 07/17/22 06:00 Temperature 37.1 C Pulse Rate 62 63 63 Respiratory Rate 12 Blood Pressure 125/66 Pulse Oximetry 99 Oxygen Delivery 07/17/22 06:00 07/17/22 08:00 07/17/22 08:00 Temp
[2022-07-17] MEDS: PERFLUTREN LIPID MICROSPHERES 1.5 ML VIAL DILUTED TO 10 ML TOTAL VOLUME IV PUSH (11:00)
--- NOTE | 2022-07-17 12:34 | PM.DS ---
DS: Admitting Diagnosis Discharge Date 07/17/2022 Admitting Diagnosis STEMI DS: Discharge Diagnosis Discharge Diagnosis (1) Acute ST elevation myocardial infarction: Qualifiers: Involved coronary artery: unspecified coronary artery Qualified Code(s): I21.3 - ST elevation (STEMI) myocardial infarction of unspecified site Code(s): I21.3 - ST elevation (STEMI) myocardial infarction of unspecified site Status: Acute DS: Summary Hospital Course Hospital Course: Cardiac cath showed acute thrombotic occlusion of the RCA, s/p successful PCI with VALERIA x 1. Loaded with ASA 324mg x 1. Continue ASA 81mg once daily indefinitely. Loaded with Brilinta 180mg x 1. Continue with Brilinta for at least 1 year. High-intensity statin. Echo with normal LVEF, no significant valvular disease. His event monitor reportedly showed transient complete heart block earlier prior to presentation -- likely due to inferior STEMI. Patient is currently in sinus rhythm. Tele without any arrhythmias. Has LAD lesion - will refer to a [facility] for revascularization (cannot do PCI of the LAD lesion here as it's heavily calcified and there are no atherectomy devices at [place] [facility] [employer]). Status at Discharge Functional status at discharge: independent ambulation Overall status at discharge: patient is back to baseline Time Spent with Patient Time attestation: Total time spent providing and/or coordinating discharge services: Exam Const: General: comfortable and no acute distress HENMT: Mouth: Yes moist mucous membranes Eyes: General: appearance normal, both eyes and all related structures Sclera: sclerae normal Neck: Neck: supple Resp: Effort & Inspection: normal respiratory effort Auscultation: clear to auscultation bilaterally Cardio: Rate: regular rate Rhythm: regular rhythm Heart sounds: no murmurs Neuro: Motor exam (neuro): 5/5 motor strength present throughout Psych: Mental Status: mental status grossly normal Affect: normal affect DS: Data Data Completed and Pending Labs on day of discharge: Labs from last 24 hours 07/17/22 07/16/22 07/16/22 04:23 22:47 19:53 WBC 9.3 RBC 4.61 Hgb 13.9 L Hct 41.8 L MCV 90.7 MCH 30.2 MCHC 33.3 RDW 13.2 Plt Count 240 MPV 8.9 Immature Gran % (Auto) 0.3 Neut % (Auto) 65.3 Lymph % (Auto) 18.8 Sullivan % (Auto) 12.2 H Eos % (Auto) 3.0 Baso % (Auto) 0.4 Lymph # (Auto) 1.74 Sullivan # (Auto) 1.1 H Eos # (Auto) 0.3 Baso # (Auto) 0.0 Abs Immat Gran (auto) 0.03 Absolute Neuts (auto) 6.1 Absolute Nucleated RBC 0.0 Nucleated RBC % 0.0 PT INR APTT Sodium 141 Potassium 3.9 Chloride 109 H Carbon Dioxide 23 Anion Gap 9 BUN 9 D Creatinine 0.50 L Estim Creat Clear Calc 127 Estimated GFR > 60 Glucose 101 POC Capillary Glucose Calcium 8.8 Total Bilirubin AST ALT Alkaline Phosphatase Troponin I 4.030 H* D 2.010 H* D Total Protein Albumin Triglycerides Cholesterol LDL Cholesterol Direct HDL Direct Blood Type Antibody Screen 07/16/22 07/16/22 16:36 16:27 WBC 12.0 H RBC 5.01 Hgb 15.2 Hct 45.1 MCV 90.0 MCH 30.3 MCHC 33.7 RDW 13.2 Plt Count 352 MPV 9.1 Immature Gran % (Auto) 0.4 Neut % (Auto) 51.4 Lymph % (Auto) 28.4 Sullivan % (Auto) 13.3 H Eos % (Auto) 5.9 H Baso % (Auto) 0.6 Lymph # (Auto) 3.40 H Sullivan # (Auto) 1.6 H Eos # (Auto) 0.7 H Baso # (Auto) 0.1 Abs Immat Gran (auto) 0.05 H Absolute Neuts (auto) 6.1 Absolute Nucleated RBC 0.0 Nucleated RBC % 0.0 PT 13.3 INR 1.0 APTT 24.1 Sodium 142 Potassium 3.9 Chloride 105 Carbon Dioxide 26 Anion Gap 11 BUN 15 Creatinine 0.80 Estim Creat Clear Calc 83 Estimated GFR > 60 Glucose 105 POC Capillary Glucose 102 Calcium 9.5 Total Bilirubin 0.4 AST 32 ALT 37 Alkalin
--- NOTE | 2022-07-17 13:22 | PC.NURSE ---
1300 Patient discharged home. IV's taken out. Patient and spouse received DC instructions. All questions answered. Patient taken to car via wheelchair with RN
== END 2022-07-17 13:00 | disposition home or self-care (01) | DRG 247 ==
LOC: ANHED 16:38 → ANHCPC 16:39 → ANHICU 17:43
PROVIDERS: Admitting Provider Internal Medicine; Emergency Provider Emergency Medicine; PCP Family Medicine; Visit Provider Internal Medicine
PROC: 4A023N7 Measurement of Cardiac Sampling and Pressure, Left Heart, Percutaneous Approach (ICD-10-PCS; CPT 93452; principal; 2022-07-16 13:45)
PROC: 027034Z Dilation of Coronary Artery, One Artery with Drug-eluting Intraluminal Device, Percutaneous Approach (ICD-10-PCS; 2022-07-16 13:45)
PROC: 027034Z Dilation of Coronary Artery, One Artery with Drug-eluting Intraluminal Device, Percutaneous Approach (ICD-10-PCS; 2022-07-16 13:45)
PROC: 027034Z Dilation of Coronary Artery, One Artery with Drug-eluting Intraluminal Device, Percutaneous Approach (ICD-10-PCS; 2022-07-16 13:45)
DX: I21.11 ST elevation (STEMI) myocardial infarction involving right coronary artery (principal); I25.10 Atherosclerotic heart disease of native coronary artery without angina pectoris; L30.9 Dermatitis, unspecified; Z86.73 Personal history of transient ischemic attack (TIA), and cerebral infarction without residual deficits
CPT/HCPCS: 36415; 70450; 71045; 80048; 80053; 80061; 82948; 84484; 85025; 85610; 85730; 86850; 86900; 86901; 92978; 93005; 93458; 99291; A9270; C1725; C1753; C1760; C1769; C1874; C1887; C1894; C8929; C9606; G0269; J0583; J1644; J2250; J2370; J3010; J7030; J7040; J7060; Q9957

== ENCOUNTER 2022-10-01 11:00 | Outpatient (RCR) | payer MEDICARE, OTHER, SELFPAY | END 2022-11-05 17:00 | disposition home or self-care (01) | LOC: ANHCPREHAB 11:00 | PROVIDERS: PCP Family Medicine; Visit Provider Internal Medicine | DX: Z95.5 Presence of coronary angioplasty implant and graft (principal); I21.3 ST elevation (STEMI) myocardial infarction of unspecified site; E78.2 Mixed hyperlipidemia; I25.10 Atherosclerotic heart disease of native coronary artery without angina pectoris; E66.3 Overweight | CPT/HCPCS: 93798; 97802 ==

== ENCOUNTER 2022-11-20 10:45 | Outpatient (RCR) | payer MEDICARE, OTHER, SELFPAY ==
[2022-09-10 09:24] VITALS: BMI 27.3
[2022-09-10 09:45] VITALS: BMI 27.3
[2022-09-10 11:34] VITALS: BMI 27.2
[2022-11-20 10:45] VITALS: BMI 27.2
[2022-11-20 10:46] VITALS: BMI 27.2
== END 2022-11-20 16:56 | disposition home or self-care (01) ==
LOC: ANHDMC 10:45
PROVIDERS: PCP Family Medicine; Visit Provider Family Medicine
DX: I21.3 ST elevation (STEMI) myocardial infarction of unspecified site (principal); E78.2 Mixed hyperlipidemia; I25.10 Atherosclerotic heart disease of native coronary artery without angina pectoris; E66.3 Overweight; Z71.3 Dietary counseling and surveillance
CPT/HCPCS: 97802; 97803

== ENCOUNTER 2023-06-05 14:42 | Outpatient (CLI) | payer MEDICARE, SELFPAY ==
[2023-06-05 19:52] LABS: Prostate Specific Antigen 0.3 ng/mL (< OR = 4.0)
== END 2023-06-05 14:43 | disposition home or self-care (01) ==
LOC: ANHGOSHLAB 14:43
PROVIDERS: PCP Family Medicine; Visit Provider Family Medicine
DX: Z12.5 Encounter for screening for malignant neoplasm of prostate (principal)
CPT/HCPCS: 36415; 84153; G0103

== ENCOUNTER 2024-09-14 00:28 | Day surgery (SDC) | payer MEDICARE, SELFPAY ==
[2024-09-08 09:07] VITALS: BMI 28.8
--- NOTE | 2024-09-08 09:30 | PC.NURSE ---
Spoke with _patient regarding medication ELIQUIS. _PATIENT__verbalizes understanding that the last dose is to be taken on __09/11/2024__ and the Endoscopist will instruct them when to restart after the procedure. PATIENT WILL REMAIN ON HIS ASPIRIN.
--- OUTSIDE RECORDS SUMMARY | 2024-09-14 00:30 | XMS_ITS | Clinical Summary ---
Author Organization [facility] [address] Address [address] [place] [address] Care Team Providers Care Molasses Preparer Name Role Phone Tino Arriaga MD Primary Care Provider [phone] [phone] Allergies No known active allergies Medications albuterol HFA (PROVENTIL HFA,VENTOLIN HFA,PROAIR HFA) 90 mcg/actuation inhaler 2 PUFF INHALED EVERY 4 HOURS NEEDED FOR BRONCHOSPASM 3 Active atorvastatin (LIPITOR) 80 mg tablet 80 MG ORALLY DAILY 3 Active metFORMIN XR (GLUCOPHAGE XR) 500 mg 24 hr tablet TAKE 1 TABLET BY MOUTH BY MOUTH DAILY 3 Active metoprolol tartrate (LOPRESSOR) 25 mg immediate release tabletIndication s:Paroxysmal atrial fibrillation (HCC) TAKE 1 TABLET BY MOUTH TWICE A DAY 180 tablet 3 4 Active Eliquis 5 mg tablet TAKE 1 TABLET BY MOUTH TWICE A DAY 180 tablet 3 4 Active lisinopriL (PRINIVIL,ZESTRI L) 5 mg tabletIndication s:Coronary artery disease involving [place] coronary artery of [place] heart with angina pectoris Take 1 tablet (5 mg total) by mouth daily 90 tablet 3 4 Active aspirin 81 mg enteric coated tablet Take 1 tablet (81 mg total) by mouth daily 3 Active allopurinoL (ZYLOPRIM) 300 mg tablet 300 MG ORALLY DAILY 4 Active cephalexin (KEFLEX) 500 mg capsule Take 1 capsule (500 mg total) by mouth 3 (three) times a day 5 Active terbinafine (LamiSIL) 250 mg tablet TAKE 1 TAB DAILY FOR 1 WEEK, REPEAT EVERY MONTH FOR 6 MONTHS 5 Active Active Problems Problem Noted Date Diagnosed Date Tobacco dependence 07/24/2023 Hyperlipidemia 07/24/2023 Hypertension 07/24/[address] elevation myocardial infarction (S CJ) 09/12/2022 Paroxysmal atrial fibrillation 09/12/2022 Cerebrovascular accident (CVA) 09/12/2022 Chronic anticoagulation 09/12/2022 Coronary artery disease invo lving [place]re[place] coronary artery of [place] heart with angina pectoris 07/23/2022 Encounters Date Type Department Care Team Description 08/26/2024 10:30 AM CDT Office Visit [facility] Cardiology [address] [place] [address] Phyllis Neal NP Coronary artery disease involving [place] coronary artery of [place] heart without angina pectoris (Primary Dx); Paroxysmal atrial fibrillation (HCC); History of CVA (cerebrovascular accident); Chronic anticoagulation; Hypertension, unspecified type; Tobacco dependence; Lipid screening from Last 3 Months Surgical History Surgery Date Site/Laterality Comments ROTATOR CUFF REPAIR Left SINUS SURGERY Medical History Medical History Date Comments Heart attack (HCC) Asthma Stroke (HCC) Sleep apnea Family History Medical History Relation Name Comments Cancer Father Relation Name Status Comments Brother Alive Father (Age 59) Mother (Age 91) Sister 1 Alive Sister 2 Alive Social History Tobacco Use Types Packs/Day Years Used Date Smoking Tobacco: Former Cigarettes Q uit: 06/19/2022 Smokeless Tobacco: Current Chew Tobacco Cessation:Ready to Q uit: Not Asked; Counseling Given: Not Answered Personal Safety Answer Date Recorded Have you ever been in or are you currently in a harmful physical or emotional relationship or is someone making you feel afraid or unsafe? 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 Gender Identity Not on file Sexual Orientation Not on file Obstetrics History Last Filed Vital Signs Vital Sign Reading Time Taken Comments Blood Pressure 102/60 08/26/2024 10:38 AM CDT Pulse 72 08/26/2024 10:38 AM CDT Temperature 36.2 C (97.2 F) 08/01/2022 1:06 PM CDT Respiratory Rate 17 08/01/2022 7:30 PM CDT Oxygen Saturation 95% 08/26/2024 10:38 AM CDT Inhaled Oxygen Concentration - - Weight 93 kg (205 lb) 08/26/2024 10:38 AM CDT Height 175.3 cm (5' 9) 08/26/2024 10:38 AM CDT Body Mass Index 30.27 08/26/2024 10:38 AM CDT Plan of Treatment Health Maintenance Due Date Last Done Comments Colon Cancer Screening-Colonoscopy 1955 Depression Screening 1957 Fall Risk Assessment 1957 Hepatitis C Screening 1957 Prostate Cancer Screening-PSA 1957 DTaP/Tdap/Td Vaccine (1 - Tdap) 01/11/1968 Hepatitis B Screening 1975 Pneumococcal vaccine 65+ (1 of 1 - PCV) 2007 Zoster Vaccine (2 of 2) 03/28/2021 01/31/2021 Abdominal Aortic Aneurysm (A AA) Screen 2022 Well Visit 65+ 2022 Covid-19 Vaccine (3 - 2023-2 5 season) 2023 05/21/2021, 04/23/2020 Influenza Vaccine (#1) 2024 , 12/12/2020, 12/15/2019, Additional history exists Medical Devices Implanted Type Area Cook Mayonnaise Device Identifier Shelf Expiration Date Model / Serial / Lot [employer] Benjie Synergy Xd Monorail 3mm 32mm 144cm Delivery System 1 Access Port [id number] - [id number] - [id number] Implanted:Qty: 1 on 08/01/2022 by Dax Babcock MD at [facility] Stent N/A: Anterior Descending Cornary Artery [employer] Benjie 11/27/2023 [id number] / [id number] / [id number] [employer] Benjie Stent Drug Eluting S Megatron Mr 4.24h74up [id number] - [id number] - [id number] Implanted:Qty: 1 on 08/01/2022 by Dax Babcock MD at [facility] Stent N/A: Anterior Descending Cornary Artery [employer] Benjie 09/23/2022 [id number] / [id number] / [id number] Procedures Procedure Name Priority Date/Time Associated Diagnosis Comments POCT LIPID PANEL Routine 08/26/2024 11:3 8 AM CDT Lipid screening from Last 3 Months Results * POCT lipid panel (08/26/2024 11:38 AM CDT) Cholesterol, POC 117 <200 MG/DL HDL, POC 41 >=40 mg/dL Triglycerides, POC 96 <=149 mg/dL LDL Cholesterol POC 56 <=129 mg/dL Chol/HDL Ratio, POC 1.4 NONE Non-HDL Cholesterol, POC 75 NONE mg/dL Cholesterol Total, POC 117 30 - 199 mg/dL Capillary blood 08/26/2024 1 1:38 AM CDT Phyllis Neal NP POINT OF CARE TEST ORDERA BLES Final Result from Last 3 Months Insurance [place] MEDICARE PPO HUMANA [employer] MEDICARE PPO Member Subscriber Plan / Payer (Ef fective 2022-Present) Name:Rickey Powers Relation to Subscriber:Self Name:Rickey Powers Payer ID:[id number] (NAIC) Type:MEDICARE RISK OTHER Address: [address] Advance Directives For more information, please contact: [phone] * Full Code (Latest Code Status on File) Date Activated Date Inactivated Comments 08/01/2022 4:07 PM 08/02/2022 12:08 AM Care Teams Molasses Preparer Relationship Specialty Start Date End Date Tino Arriaga MD PCP - General Family Medicine 07/15/22
--- OUTSIDE RECORDS SUMMARY | 2024-09-14 00:30 | XMS_ITS | Clinical Summary ---
Author Organization [facility] Address [address] [place] [address] Care Team Providers Care Data Collection Specialist Name Role Phone Tino Arriaga MD Primary Care Provider [phone] Allergies No known active allergies Medications aspirin EC (ECOTRIN) 81 MG tablet Take 1 tablet (81 mg total) by mouth daily. 90 tablet 3 06/10/2022 Active atorvastatin (LIPITOR) 40 MG tablet Take 1 tablet (40 mg total) by mouth nightly at bedtime. 90 tablet 3 06/09/2022 Active lisinopril (PRINIVIL) 2.5 MG tablet Take 1 tablet (2.5 mg total) by mouth daily. 90 tablet 06/09/2022 Active metFORMIN ER (GLUCOPHAGE-XR) 500 MG 24 hr tablet Take 1 tablet (500 mg total) by mouth daily with breakfast. 30 tablet 06/09/2022 Active Active Problems Problem Noted Date Diagnosed Date TIA (transient ischemic attack) 06/08/2022 Social History Tobacco Use Types Packs/Day Years Used Date Smoking Tobacco: Every Day Cigars Smokeless Tobacco: Never Tobacco Cessation:Ready to Q uit: Not Asked; Counseling Given: Not Answered Alcohol Use Standard Drinks/Week Comments Yes 10 (1 standard drink = 0.6 oz pu re alcohol) drinks daily Humiliation, Afraid, Rape, and Kick questionnair e Answer Date Recorded Within the last year, have y ou been afraid of your partner or ex-partner? No 06/08/2022 Within the last year, have y ou been humiliated or emotionally abused in other ways by your partner or ex-partner? No Within the last year, have y ou been kicked, hit, slapped, or otherwise physically hurt by your partner or ex-partner? No 06/08/2022 Within the last year, have y ou been raped or forced to have any kind of sexual activity by your partner or ex-partner? No 06/08/2022 Overall Financial Resource Strain (CARDIA) Answe r Date Recorded How hard is it for you to pa y for the very basics like food, housing, medical care, and heating? Not hard at all 06/08/2022 Hunger Vital Sign Answer Date Recorded Within the past 12 months, y ou worried that your food would run out before you got the money to buy more. Never true 06/09/19 Within the past 12 months, t he food you bought just didn't last and you didn't have money to get more. Never true 06/08/2022 PRAPARE - Transportation Answer Date Re corded In the past 12 months, has l ack of transportation kept you from medical appointments or from getting medications? No 05/18 In the past 12 months, has l ack of transportation kept you from meetings, work, or from getting things needed for daily living? No 06/08/2022 Housing Stability Vital Sign Answer Micheal e Recorded In the last 12 months, was t here a time when you were not able to pay the mortgage or rent on time? No 06/08/2022 In the last 12 months, how many places have you lived? 1 06/08/2022 In the last 12 months, was t here a time when you did not have a steady place to sleep or slept in a assisted (including now)? No 06/08/2022 Sex and Gender Information Value Date Recorded Sex Assigned at Not on file Legal Sex Male 7:00 PM CDT Gender Identity Not on file Sexual Orientation Straight 07/08/2022 3: 19 PM CDT Last Filed Vital Signs Vital Sign Reading Time Taken Comments Blood Pressure 152/78 06/09/2022 11:22 AM CDT Pulse 85 06/09/2022 11:22 AM CDT Temperature 36.5 C (97.7 F) 06/09/2022 11:22 AM CDT Respiratory Rate 18 06/09/2022 11:2 2 AM CDT Oxygen Saturation 98% 06/09/2022 11: 22 AM CDT Inhaled Oxygen Concentration - - Weight 87.9 kg (193 lb 12.6 oz) 06/09/2022 4:22 AM CDT Height 177.8 cm (5' 10) 06/08/2022 6:29 PM CDT Body Mass Index 27.81 06/08/2022 6:29 PM CDT Plan of Treatment Health Maintenance Due Date Last Done Comments ASCVD Statin 1957 Colorectal Cancer Screening Colonoscopy (10 Years) 1957 Hepatitis C 1975 DTaP, Tdap and Td Vaccines ( 1 - Tdap) 01/11/1976 Pneumococcal Vaccine: 50+ Years (1 of 2 - PCV) 01/11/1976 RSV Immunization or 60+ Years (1 - Risk 60-74 years 1-dose series) 2017 Zoster Vaccines (2 of 2) 03/28/2021 01/31/2021 Annual Medicare Wellness Visit 2022 ASCVD LDL 06/10/2023 06/09/2022 COVID-19 Vaccine (3 - 2023-2 5 season) 2023 05/21/2021, 04/23/2020 Meningococcal B Vaccine Aged Out No l onger eligible based on patient's age to complete this topic Meningococcal Vaccine Aged Out No romero toña eligible based on patient's age to complete this topic RSV Immunizations Under 20 Months Aged Out No longer eligible b ased on patient's age to complete this topic Goals Goal Patient Goal Type Associated Problems Recent Progress Patient-Stated? Author Patient will return to prior living situation and remain independent in ADLs upon discharge from hospital Lifestyle No Lian Coyle, food safety field specialist Procedure Name Priority Date/Time Associated Diagnosis Comments LIPID PANEL Routine 06/09/2022 7:18 AM CDT from Last 3 Months or Most Recently Relevant to Health Maintenance Results * LIPID PANEL (06/09/2022 7:18 AM CDT) CHOLESTEROL 191 MG/DL 06/09/2022 8:12 AM CDT [facility] TRIGLYCERIDES 149 MG/DL 06/09/2022 8:12 AM CDT [facility] HDL 50 MG/DL 06/09/2022 8:12 AM CDT [facility] LDL (CALCULATED) 111 MG/DL 06/10/19 8:12 AM CDT [facility] NON HDL CHOLESTEROL 141 MG/DL 06/09 8:12 AM CDT [facility] CHOL/HDL RATIO 3.8 06/09/2022 8:12 AM CDT [facility] VLDL CALCULATION 30 MG/DL 06/10/19 8:12 AM T [facility] LIPID INTERPRETATION 06/09/2022 8:12 AM T [facility] Comment: [facility] CONCENSUS REPORT RECOMMENDATIONS: ADULT CHILD LOW RISK: CHOLESTEROL <200 <170 TRIGLYCERIDE <150 --- HDL >=60 --- LDL <100 <110 BORDERLINE: CHOLESTEROL 200-239 170-199 TRIGLYCERIDE 150-199 --- HDL 40-59 --- LDL 100-159 110-129 HIGH RISK: CHOLESTEROL >=240 >=200 TRIGLYCERIDE >=200 --- HDL <40 --- LDL >=160 >=130 06/09/2022 7:18 AM CDT us Johann Monaco MD LABORATORY Final Resul t [facility] [address] [place] [address], from Last 3 Months or Most Recently Relevant to Health Maintenance Insurance HUMANA Advance Directives * Full Code (Latest Code Status on File) Date Activated Date Inactivated Comments 06/08/2022 7:11 PM 06/09/2022 6:50 PM Care Teams Data Collection Specialist Relationship Specialty Start Date End Date Tino Arriaga MD [facility] [address] [address] PCP - General FAMILY PRACTICE 06/08/22
--- OUTSIDE RECORDS SUMMARY | 2024-09-14 00:30 | XMS_ITS | Referral Summary ---
Author Organization [facility] [address] [facility] [facility] [address] Address [address] [place] [address] Care Team Providers Care Fur Dressing Supervisor Name Role Phone Tino Arriaga MD Primary Care Provider [phone] [phone] Encounters Date Type Department Care Team Description 08/26/2024 10:30 AM CDT Office Visit [facility] Cardiology [address] [facility] [address] [place] [address] Phyllis Neal NP Coronary artery disease involving [place] coronary artery of [place] heart without angina pectoris (Primary Dx); Paroxysmal atrial fibrillation (HCC); History of CVA (cerebrovascular accident); Chronic anticoagulation; Hypertension, unspecified type; Tobacco dependence; Lipid screening from Last 3 Months Allergies No known active allergies Medications albuterol [...] 5 mg tabletIndication s:Coronary artery disease involving [place] coronary artery of [place] heart with angina pectoris Take 1 tablet [...] anticoagulation 09/12/2022 Coronary artery disease invo lving [place] coronary artery of [place] heart with angina pectoris 07/23/2022 Social History Tobacco Use Types Packs/Day Years [...] on file 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 Gender Identity Not on file Sexual Orientation Not on file Last Filed Vital Signs Vital Sign Reading [...] 08/26/2024 10:38 AM CDT Plan of Treatment Not on file Medical Devices Implanted Type Area Plumber Supervisor Device Identifier Shelf Expiration Date Model / Serial / Lot [employer] Benjie Synergy Xd Monorail 3mm 32mm 144cm Delivery System 1 Access Port [id number] - [id number] - [id number] Implanted:Qty: 1 on 08/01/2022 by Dax Babcock MD at [facility] Stent N/A: Anterior Descending Cornary Artery [employer] 11/27/2023 [id number] / [id number] / [id number] [employer] Stent Drug Eluting S Megatron Mr 4.47a56aw [id number] - [id number] - [id number] Implanted:Qty: 1 on 08/01/2022 by Dax Babcock MD at [facility] Stent N/A: Anterior Descending Cornary Artery [employer] 09/23/2022 [id number] / [id number] / [id number] Procedures Procedure Name Priority Date/Time Associated Diagnosis [...] Final Result from Last 3 Months Insurance HUMANA CHOICE MEDICARE PPO HUMANA CHOICE MEDICARE PPO Member Subscriber Plan / Payer (Ef fective 2022-Present) Name:Rickey Powers Relation to Subscriber:Self Name:Rickey Powers Payer ID:[id number] (NAIC) Type:MEDICARE RISK OTHER Address: [address] Advance Directives For more information, please contact: [phone] * Full Code (Latest Code Status on File) Date Activated Date Inactivated Comments 08/01/2022 4:07 PM 08/02/2022 12:08 AM Care Teams Fur Dressing Supervisor Relationship Specialty Start Date End Date Tino Arriaga MD PCP - General Family Medicine 07/15/22
[2024-09-14 09:22] VITALS: BP 105/60; PULSE 52; RESP 20; TEMP 36.1; O2SAT 100
[2024-09-14] MEDS: LACTATED RINGERS 1,000 ML 150 ML IV CONT (09:42)
--- NOTE | 2024-09-14 09:56 | P.PNAN_ITS ---
Anes - Initial Pre Proc Eval Procedure: Operation Date: 09/14/24 10:00 Proposed Procedures p Screening Colonoscopy - Gelacio Calhoun MD Date/Time: 09/14/24 09:56 Surgeon: Gelacio Calhoun MD Pre Op Diagnosis: neoplasm screening Patient Data Age: 69 Gender: M Height: 1.78 m Weight: 89.2 kg Last Vital Signs Temp 97 F L 09/14/24 09:22 Pulse 52 L 09/14/24 09:22 Resp 20 09/14/24 09:22 BP 105/60 09/14/24 09:22 Pulse Ox 100 09/14/24 09:22 O2 Del Method Room Air 09/14/24 09:22 Allergies Allergy/AdvReac Type Severity Reaction Status Date / Time No Known Allergies Allergy Verified 09/14/24 09:18 Home Medications ?Medication ?Instructions ?Recorded ?Confirmed ?Type albuterol sulfate 90 mcg/actuation 2 puff inhalation Q4H PRN 06/05/23 09/08/24 Rx aerosol inhaler (ProAir HFA) bronchospasm #8.5 grams sildenafil 100 mg tablet (Viagra) 100 mg PO DAILY PRN sexual 06/08/23 09/08/24 Rx activity #30 tabs cyclobenzaprine 5 mg tablet 5 mg PO TID PRN muscle spasm #30 10/23/23 09/08/24 Rx tabs apixaban 5 mg tablet (Eliquis) 5 mg PO BID #180 tabs 03/16/24 09/14/24 Rx atorvastatin 80 mg tablet 80 mg PO DAILY #90 tabs 03/16/24 09/14/24 Rx lisinopril 5 mg tablet 5 mg PO DAILY #90 tabs 03/16/24 09/14/24 Rx metformin 500 mg tablet,extended 500 mg PO DAILY #90 tabs 03/16/24 09/14/24 Rx release 24 hr metoprolol succinate 25 mg 25 mg PO DAILY #90 tabs 03/16/24 09/14/24 Rx tablet,extended release 24 hr aspirin 81 mg tablet,delayed 81 mg PO DAILY 05/27/24 09/14/24 History release (Adult Aspirin Regimen) allopurinol 300 mg tablet 300 mg PO DAILY PRN gout 09/08/24 09/08/24 History fluticasone furoate 200 1 inh inhalation Q24H PRN 09/08/24 09/08/24 History mcg-vilanterol 25 mcg/dose congestion inhalation powder (Breo Ellipta) fluticasone propionate 50 2 spray intranasal DAILY PRN 09/08/24 09/08/24 History mcg/actuation nasal allergy symptoms spray,suspension (Flonase Allergy Relief) terbinafine HCl 250 mg tablet See Rx Instructions PO .COMPLEX 09/08/24 09/08/24 History triamcinolone acetonide 0.1 % 1 applic topical QID PRN flareup 09/08/24 09/08/24 History topical cream Laboratory Tests 09/14/24 09:20 POC Capillary Glucose 100 mg/dl (65-105) Patient hx anesthesia problems: none Family hx anesthesia problems: none Results Review: All pre-operative results and documents have been reviewed as part of the pre- operative evaluation. [facility] Past Medical History Medical History CVA (cerebral vascular accident) Overweight (BMI 25.0-29.9) Alcohol use disorder, mild, in controlled environment Hypogonadism in male Eczema Allergic rhinitis Asthma Surgical History Surgical History H/O heart bypass surgery (~08/01/22) History of rotator cuff surgery 2015 Family History Family History Sibling CAD (coronary artery disease) of artery bypass graft Father Colon cancer Mother Alzheimer disease Son Heart attack Social History Social History Social History: Caffeine-daily Smoking packs per day: 0.04 Smoking cigarettes per day: 0.8 Years smoked: 45 Smoking pack-years: 1.80 Smoking status: Former smoker Tobacco type: cigars Smokeless tobacco user: chewing tobacco Second hand tobacco smoke exposure: No Smoking end date: 02/17/20 Alcohol intake: former Drinks per week: 12 Substance use: never Substance use type: does not use Lack of Transportation: No Lack of Food: Never True Current Housing: I Have Housing Concerned About Future Housing: No Difficulty Paying Gas/Electric Bills: No Difficulty Paying for Meds: No Currently Unemployed: No Education: Trade/Vocational Certificate Difficulty w/ Childcare or Family Care: No Living arrangements: with family Spiritual care concerns: No Anes - Eval Final PreProcedure Day of Procedure 09/14/24 09:56 Patient weight: normal Heart: regular rate and rhythm Lungs: clear to auscultation Airway: Mallampati scale class II Neurological: alert and oriented Last oral intake: >/= 8 hours ASA classification: III Emergent: no Anesthetic plan: proceed Anesthesia type and monitoring: general GIVS and standard monitoring Results Review: All pre-operative results and documents have been reviewed as part of the pre- operative evaluation. Informed Consent: The patient's anesthetic plan and its attendant risks and benefits were discussed with the patient/family/POA. Questions were solicited and answers pr ovided to the satisfaction of the patient/family/POA.
--- NOTE | 2024-09-14 10:38 | PM.HPGS ---
History of Present Illness History of Present Illness Consent: Risks, benefits, and alternatives have been discussed and questions answered. Patient agrees to proceed with procedure. Chief complaint: neoplasm screening Narrative: Rickey Powers is a 69 year old male with colon polyp 4 years ago, also family h/o colon cancer Review of Systems Review of Systems: All systems reviewed & are unremarkable except as noted in HPI and below PMFSH Past Medical History Medical History (Updated 09/14/24 @ 10:39 by Gelacio Calhoun MD) Colon polyp CVA (cerebral vascular accident) Overweight (BMI 25.0-29.9) Alcohol use disorder, mild, in controlled environment Hypogonadism in male Eczema Allergic rhinitis Asthma Surgical History Surgical History H/O heart bypass surgery (~08/01/22) History of rotator cuff surgery 2016 Family History Family History Sibling CAD (coronary artery disease) of artery bypass graft Father Colon cancer Mother Alzheimer disease Son Heart attack Social History Social History Social History: Caffeine-daily Smoking packs per day: 0.04 Smoking cigarettes per day: 0.8 Years smoked: 45 Smoking pack-years: 1.80 Smoking status: Former smoker Tobacco type: cigars Smokeless tobacco user: chewing tobacco Second hand tobacco smoke exposure: No Smoking end date: 02/17/20 Alcohol intake: former Drinks per week: 12 Substance use: never Substance use type: does not use Lack of Transportation: No Lack of Food: Never True Current Housing: I Have Housing Concerned About Future Housing: No Difficulty Paying Gas/Electric Bills: No Difficulty Paying for Meds: No Currently Unemployed: No Education: Trade/Vocational Certificate Difficulty w/ Childcare or Family Care: No Living arrangements: with family Spiritual care concerns: No Meds Home Medications and Allergies Home Medications ?Medication ?Instructions ?Recorded ?Confirmed ?Type albuterol sulfate 90 mcg/actuation 2 puff inhalation Q4H PRN 06/05/23 09/08/24 Rx aerosol inhaler (ProAir HFA) bronchospasm #8.5 grams sildenafil 100 mg tablet (Viagra) 100 mg PO DAILY PRN sexual 06/08/23 09/08/24 Rx activity #30 tabs cyclobenzaprine 5 mg tablet 5 mg PO TID PRN muscle spasm #30 10/23/23 09/08/24 Rx tabs apixaban 5 mg tablet (Eliquis) 5 mg PO BID #180 tabs 03/16/24 09/14/24 Rx atorvastatin 80 mg tablet 80 mg PO DAILY #90 tabs 03/16/24 09/14/24 Rx lisinopril 5 mg tablet 5 mg PO DAILY #90 tabs 03/16/24 09/14/24 Rx metformin 500 mg tablet,extended 500 mg PO DAILY #90 tabs 03/16/24 09/14/24 Rx release 24 hr metoprolol succinate 25 mg 25 mg PO DAILY #90 tabs 03/16/24 09/14/24 Rx tablet,extended release 24 hr aspirin 81 mg tablet,delayed 81 mg PO DAILY 05/27/24 09/14/24 History release (Adult Aspirin Regimen) allopurinol 300 mg tablet 300 mg PO DAILY PRN gout 09/08/24 09/08/24 History fluticasone furoate 200 1 inh inhalation Q24H PRN 09/08/24 09/08/24 History mcg-vilanterol 25 mcg/dose congestion inhalation powder (Breo Ellipta) fluticasone propionate 50 2 spray intranasal DAILY PRN 09/08/24 09/08/24 History mcg/actuation nasal allergy symptoms spray,suspension (Flonase Allergy Relief) terbinafine HCl 250 mg tablet See Rx Instructions PO .COMPLEX 09/08/24 09/08/24 History triamcinolone acetonide 0.1 % 1 applic topical QID PRN flareup 09/08/24 09/08/24 History topical cream Allergies Allergy/AdvReac Type Severity Reaction Status Date / Time No Known Allergies Allergy Verified 09/14/24 09:18 Vital Signs Vital Signs - 24 hr 09/14/24 09:22 Temperature 97 F L Pulse Rate 52 L Respiratory Rate 20 Blood Pressure 105/60 Pulse Oximetry 100 Oxygen Delivery Room Air Exam Const: General: comfortable and no acute distress HENMT: Face/Nose/Sinus: Normal nares present Eyes: General: appearance normal, both eyes and all related structures Neck: Neck: no JVD Resp: Auscultation: clear to auscultation bilaterally Cardio: Rate: regular rate Rhythm: regular rhythm GI: Inspection: non-distended GI Palp: Yes Soft to palpation Skin: General skin exam: normal color Neuro: General: gait normal Speech: normal speech Extrem: General: normal to inspection Psych: Mental Status: mental status grossly normal Assessment and Plan Assessment and plan (1) Colon polyp: Code(s): K63.5 - Polyp of colon Status: Acute Assessment and Plan: colonoscopy
--- NOTE | 2024-09-14 10:49 | S_PTH ---
PATIENT: Rickey Powers LOC: [facility]#:[id number] AGE/SX: 69/M ROOM: RE09/14/[address]: Gelacio Calhoun MD : [id number] BED: DIS: 09/14/2024 SPEC #: [id number] RECD: 09/14/24 13:24 STATUS: BRITTNI REQ #: [id number] MEHDI: 09/14/24 10:[address]: Gelacio Calhoun DEPT: [facility] Surgical RECD BY: Maya Polanco ENTERED: 09/14/24 13:24 SP TYPE: Surgical OTHR DR: Tino Arriaga MD Tissues: A - Colon Polypectomy Procedures: Hematoxylin and Eosin Stain Gross and Microscopic Level 4
[2024-09-14 10:53] VITALS: BP 89/38; PULSE 52; RESP 15; O2SAT 100
[2024-09-14 11:03] VITALS: BP 74/33; PULSE 47; RESP 15; O2SAT 100
[2024-09-14 11:13] VITALS: BP 99/51; PULSE 51; RESP 15; O2SAT 100
== END 2024-09-14 11:22 | disposition home or self-care (01) ==
PROVIDERS: PCP Family Medicine; Referring Provider Family Medicine; Visit Provider Internal Medicine Gastroenterology
PROC: 0DJD8ZZ Inspection of Lower Intestinal Tract, Via Natural or Artificial Opening Endoscopic (ICD-10-PCS; CPT 45378; principal; 2024-09-14 10:00)
DX: Z12.11 Encounter for screening for malignant neoplasm of colon (principal); D12.4 Benign neoplasm of descending colon; K57.30 Diverticulosis of large intestine without perforation or abscess without bleeding; E29.1 Testicular hypofunction; J45.909 Unspecified asthma, uncomplicated; F17.220 Nicotine dependence, chewing tobacco, uncomplicated; Z79.51 Long term (current) use of inhaled steroids; Z79.01 Long term (current) use of anticoagulants; Z79.84 Long term (current) use of oral hypoglycemic drugs; Z79.82 Long term (current) use of aspirin; Z98.890 Other specified postprocedural states; Z95.1 Presence of aortocoronary bypass graft; Z86.79 Personal history of other diseases of the circulatory system; Z80.0 Family history of malignant neoplasm of digestive organs; Z82.49 Family history of ischemic heart disease and other diseases of the circulatory system
CPT/HCPCS: 45385; 82948; 88305; J2003; J2371; J2704; J7120